=== PATIENT | male | born 1990 | race Caucasian/White ===

== ENCOUNTER 2021-07-09 14:24 | Emergency (ER) | payer SELFPAY ==
[~2021-07-09] VITALS: Ht 172.7 cm; Wt 63.6 kg
[2021-07-09 14:33] VITALS: BP 98/51
[2021-07-09 17:07] LABS: HEMATOCRIT 42.1 % (41-53); HEMOGLOBIN 14.2 g/dL (13.5-17.5); MEAN CORPUSCULAR HEMOGLOBIN 31.2 pg (26.0-34.0); MEAN CORPUSCULAR HGB CONC 33.7 G/dL (31.0-37.0); MEAN CORPUSCULAR VOLUME 93 fL (80-100); PLATELET COUNT (AUTO) 217 K/uL (150-450); RED BLOOD CELL COUNT(AUTO) 4.55 MIL/uL (4.50-5.90); RED CELL DISTRIBUTION WIDTH 14.6 % (11.5-14.5)
[2021-07-09 17:18] LABS: ANION GAP 4 mmol/L (8-16); CALCIUM, TOTAL 8.6 mg/dL (8.8-10.5); CARBON DIOXIDE 32 mmol/L (22-29); CHLORIDE 103 mmol/L (98-107); CREATININE 0.97 mg/dL (0.60-1.30); GLOMERULAR FILTR. RATE CALC > 60 mL/min (>60); GLUCOSE,RANDOM 101 mg/dL (70-110); POTASSIUM 4.1 mmol/L (3.5-5.1); SODIUM SERUM 139 mmol/L (136-145); UREA NITROGEN, BLOOD 14 mg/dL (7-18)
[2021-07-09 17:34] LABS: BAND NEUTROPHILS % (MANUAL) 4 % (0-5); LYMPHOCYTES % (MANUAL) 35 % (22-44); MONOCYTES % (MANUAL) 5 % (2-9); SEGMENTED NEUTROPHILS % 56 % (40-70)
[2021-07-09] MEDS ORDERED: DOCU-385 PO (18:13)
[2021-07-09] MEDS ORDERED: HYDR25SU38 PR (18:17)
== END 2021-07-09 18:36 | disposition home or self-care (01) ==
LOC: EMS 14:28
DX: K64.9 Unspecified hemorrhoids (principal); F17.210 Nicotine dependence, cigarettes, uncomplicated; F12.90 Cannabis use, unspecified, uncomplicated; F19.90 Other psychoactive substance use, unspecified, uncomplicated
CPT/HCPCS: 80048; 85007; 85027; 99283

== ENCOUNTER 2022-05-31 13:24 | Emergency (ER) | payer MEDICAID ==
[~2022-05-31] VITALS: Ht 170.2 cm; Wt 63.0 kg
[~2022-05-31 13:24] MED LIST: DOCU-385 PO; HYDR25SU38 PR
[2022-05-31 14:57] VITALS: BP 106/89
[2022-05-31] MEDS ORDERED: FLUCONAZOLE 200 MG TABLET PO ONE (15:45)
[2022-05-31 15:46] LABS: BASOPHILS % (AUTO) 0.4 % (0.0-2.0); EOSINOPHILS % (AUTO) 4.7 % (1.0-6.0); HEMATOCRIT 36.6 % (41-53); HEMOGLOBIN 12.4 g/dL (13.5-17.5); LYMPHOCYTES # (AUTO) 0.8 K/uL (1.0-4.8); LYMPHOCYTES % (AUTO) 19.6 % (22.0-44.0); MEAN CORPUSCULAR HEMOGLOBIN 29.6 pg (26.0-34.0); MEAN CORPUSCULAR HGB CONC 33.9 G/dL (31.0-37.0); MEAN CORPUSCULAR VOLUME 87 fL (80-100); MONOCYTES # (AUTO) 0.4 K/uL (0.1-1.0); MONOCYTES % (AUTO) 10.8 % (2.0-9.0); NEUTROPHILS # (AUTO) 2.7 K/uL (1.8-7.7); NEUTROPHILS % (AUTO) 64.5 % (40.0-70.0); PLATELET COUNT (AUTO) 244 K/uL (150-450); RED CELL DISTRIBUTION WIDTH 13.5 % (11.5-14.5)
[2022-05-31 15:54] LABS: ANION GAP 4 mmol/L (8-16); CALCIUM, TOTAL 8.7 mg/dL (8.8-10.5); CARBON DIOXIDE 31 mmol/L (22-29); CHLORIDE 100 mmol/L (98-107); GLOMERULAR FILTR. RATE CALC > 60 mL/min (>60); GLUCOSE,RANDOM 90 mg/dL (70-110); SODIUM SERUM 135 mmol/L (136-145); UREA NITROGEN, BLOOD 7 mg/dL (7-18)
[2022-05-31 16:00] LABS: ALANINE AMINOTRANSFERASE 23 U/L (12-78); ALKALINE PHOSPHATASE 68 U/L (46-116); ASPARTATE AMINOTRANSFERASE 27 U/L (15-37); BILIRUBIN,TOTAL 0.2 mg/dL (0.1-1.0); TOTAL PROTEIN, SERUM 7.4 g/dL (6.4-8.2)
[2022-05-31] MEDS ORDERED: FLUC100T68 PO (17:18)
[2022-05-31] MEDS ORDERED: NYST100033 PO (17:19)
[2022-06-03 12:06] LABS: HIV 1-2 SCREEN 4TH GEN W/RFLX Preliminary Reactive (Non Reactive); HIV INTERPRETATION HIV-1 Positive; HIV-1 ANTIBODY(MULTISPOT) Reactive (Non Reactive); HIV-2 ANTIBODY(MULTISPOT) Non Reactive (Non Reactive)
== END 2022-05-31 17:34 | disposition home or self-care (01) ==
LOC: EMS 13:43
DX: K64.9 Unspecified hemorrhoids (principal); B37.9 Candidiasis, unspecified; F17.210 Nicotine dependence, cigarettes, uncomplicated; F15.90 Other stimulant use, unspecified, uncomplicated
CPT/HCPCS: 80053; 85025; 87389; 99283

== ENCOUNTER 2022-06-25 10:47 | Emergency (ER) | payer MEDICAID ==
[~2022-06-25] VITALS: Ht 170.2 cm; Wt 65.9 kg
[~2022-06-25 10:47] MED LIST changes: -DOCU-385 PO; +FLUC100T68 PO; -HYDR25SU38 PR; +NYST100033 PO
[2022-06-25 14:02] VITALS: BP 122/68
== END 2022-06-25 14:03 | disposition home or self-care (01) ==
LOC: EMS 10:50
DX: M20.011 Mallet finger of right finger(s) (principal); F19.90 Other psychoactive substance use, unspecified, uncomplicated; F17.210 Nicotine dependence, cigarettes, uncomplicated
CPT/HCPCS: 99283

== ENCOUNTER 2023-03-18 15:01 | Emergency (ER) | payer MEDICAID ==
[~2023-03-18] VITALS: Ht 172.7 cm; Wt 77.3 kg
[2023-03-18 15:08] VITALS: TEMP 98.2
[2023-03-18] MEDS ORDERED: CEPH-558 PO (16:28)
[2023-03-18] MEDS ORDERED: CEPHALEXIN MONOHYDRATE 500 MG CAPSULE PO ONE (16:30)
[2023-03-18] MEDS ORDERED: IBUPROFEN 600 MG TABLET PO ONE (16:30)
[2023-03-18 16:46] VITALS: BP 131/84; PULSE 88; RESP 16
== END 2023-03-18 17:04 | disposition home or self-care (01) ==
LOC: EMS 15:20
DX: S80.861A Insect bite (nonvenomous), right lower leg, initial encounter (principal); F17.210 Nicotine dependence, cigarettes, uncomplicated; F15.90 Other stimulant use, unspecified, uncomplicated; W57.XXXA Bitten or stung by nonvenomous insect and other nonvenomous arthropods, initial encounter; Y93.89 Activity, other specified; Y92.89 Other specified places as the place of occurrence of the external cause; Y99.8 Other external cause status
CPT/HCPCS: 99283

== ENCOUNTER 2023-03-22 19:52 | Emergency (ER) | payer MEDICAID ==
[~2023-03-22] VITALS: Ht 172.7 cm; Wt 75.0 kg
[~2023-03-22 19:52] MED LIST changes: +CEPH-558 PO; -FLUC100T68 PO; -NYST100033 PO
[2023-03-22 20:01] VITALS: TEMP 98.2
[2023-03-22] MEDS ORDERED: LIDOCAINE 1% 10 ML VIAL SQ ONE (21:15)
[2023-03-22] MEDS ORDERED: BACTDSB PO (21:27)
[2023-03-22 21:30] VITALS: BP 127/73; PULSE 90; RESP 16
== END 2023-03-22 22:16 | disposition home or self-care (01) ==
LOC: EMS 19:53
DX: L02.415 Cutaneous abscess of right lower limb (principal); F17.210 Nicotine dependence, cigarettes, uncomplicated; F15.90 Other stimulant use, unspecified, uncomplicated
CPT/HCPCS: 99283; 10060; J3490

== ENCOUNTER 2023-05-26 13:48 | Emergency (ER) | payer MEDICAID ==
[~2023-05-26] VITALS: Ht 172.7 cm; Wt 72.7 kg
[~2023-05-26 13:48] MED LIST changes: +BACTDSB PO
[2023-05-26 14:03] VITALS: TEMP 98.5
[2023-05-26] MEDS ORDERED: DOXY-354 PO (16:43)
[2023-05-26] MEDS ORDERED: CEPH-558 PO (16:43)
[2023-05-26] MEDS ORDERED: IBUP-1554 PO (16:43)
[2023-05-26 17:12] VITALS: BP 126/78; PULSE 81; RESP 16
== END 2023-05-26 17:17 | disposition home or self-care (01) ==
LOC: EMS 13:48
DX: L03.012 Cellulitis of left finger (principal); F17.210 Nicotine dependence, cigarettes, uncomplicated; F15.90 Other stimulant use, unspecified, uncomplicated
CPT/HCPCS: 26010; 99284; 73140-TC; Z7502

== ENCOUNTER 2023-07-31 18:35 | Emergency (ER) | payer MEDICAID ==
[~2023-07-31] VITALS: Ht 165.1 cm; Wt 68.2 kg
[~2023-07-31 18:35] MED LIST changes: +DOXY-354 PO; +IBUP-1554 PO; +SULF-261 PO
[2023-07-31 18:42] VITALS: TEMP 98.1
[2023-07-31 21:02] VITALS: BP 121/67; PULSE 64; RESP 16
== END 2023-07-31 21:03 | disposition home or self-care (01) ==
LOC: EMS 18:35
DX: M70.21 Olecranon bursitis, right elbow (principal); F17.210 Nicotine dependence, cigarettes, uncomplicated; F12.90 Cannabis use, unspecified, uncomplicated; F15.90 Other stimulant use, unspecified, uncomplicated
CPT/HCPCS: 99283

== ENCOUNTER 2023-09-30 10:43 | Emergency (ER) | payer MEDICAID ==
[~2023-09-30] VITALS: Ht 172.7 cm; Wt 67.0 kg
[2023-09-30 10:53] VITALS: BP 111/59; PULSE 126; RESP 18; TEMP 97.8
[2023-09-30] MEDS ORDERED: CEPH-558 PO (14:01)
[2023-09-30] MEDS ORDERED: DOXY-354 PO (14:01)
[2023-09-30] MEDS ORDERED: IBUP-1554 PO (14:01)
[2023-09-30] MEDS: DOXYCYCLINE HYCLATE 100 MG TABLET PO ONE (14:05)
[2023-09-30] MEDS: CEPHALEXIN MONOHYDRATE 500 MG CAPSULE PO ONE (14:05)
== END 2023-09-30 14:09 | disposition home or self-care (01) ==
LOC: EMS 11:52
DX: L03.317 Cellulitis of buttock (principal); F17.210 Nicotine dependence, cigarettes, uncomplicated; F12.90 Cannabis use, unspecified, uncomplicated; F15.90 Other stimulant use, unspecified, uncomplicated
CPT/HCPCS: 99283

== ENCOUNTER 2023-11-02 14:21 | Emergency (ER) | payer MEDICAID ==
[~2023-11-02] VITALS: Ht 170.2 cm; Wt 65.9 kg
[~2023-11-02 14:21] MED LIST changes: -BACTDSB PO; -SULF-261 PO
[2023-11-02 14:22] VITALS: BP 100/66; PULSE 60; RESP 18; TEMP 98; O2SAT 99
[2023-11-02] MEDS ORDERED: hiv med PO (14:28)
[2023-11-02] MEDS ORDERED: CEPH-558 PO (15:38)
[2023-11-02] MEDS ORDERED: DOXY-354 PO (15:39)
[2023-11-02] MEDS: CEPHALEXIN MONOHYDRATE 500 MG CAPSULE PO ONE (16:12)
[2023-11-02] MEDS: DOXYCYCLINE HYCLATE 100 MG TABLET PO ONE (16:12)
== END 2023-11-02 16:41 | disposition home or self-care (01) ==
LOC: EMS 14:21
DX: L03.317 Cellulitis of buttock (principal); F17.210 Nicotine dependence, cigarettes, uncomplicated; F15.90 Other stimulant use, unspecified, uncomplicated; F12.90 Cannabis use, unspecified, uncomplicated
CPT/HCPCS: 99283

== ENCOUNTER 2024-05-25 16:23 | Emergency (ER) | payer MEDICAID ==
[~2024-05-25] VITALS: Ht 172.7 cm; Wt 65.9 kg
[~2024-05-25 16:23] MED LIST changes: -IBUP-1554 PO; +hiv med PO
[2024-05-25 16:34] VITALS: TEMP 98.6
[2024-05-25] MEDS ORDERED: IBUP-1492 PO (19:40)
[2024-05-25] MEDS ORDERED: AMOX-457 PO (19:40)
[2024-05-25] MEDS: AMOX TR/POT CLAV 875 MG/125 MG TABLET PO ONE (19:47)
[2024-05-25 19:48] VITALS: BP 115/53; PULSE 76; RESP 18; O2SAT 100
[2024-05-25] MEDS: IBUPROFEN 600 MG TABLET PO ONE (19:48)
== END 2024-05-25 20:09 | disposition home or self-care (01) ==
LOC: EMS 16:23
DX: L02.31 Cutaneous abscess of buttock (principal); F12.90 Cannabis use, unspecified, uncomplicated; F17.210 Nicotine dependence, cigarettes, uncomplicated
CPT/HCPCS: 10060; 99283

== ENCOUNTER 2024-12-07 15:29 | Emergency (ER) | payer MEDICAID ==
[~2024-12-07] VITALS: Ht 170.2 cm; Wt 62.3 kg
[~2024-12-07 15:29] MED LIST changes: +AMOX-457 PO; +IBUP-1492 PO
[2024-12-07 20:47] VITALS: BP 106/70; PULSE 102; RESP 20; TEMP 98.6; O2SAT 98
[2024-12-07] MEDS ORDERED: IBUP-1492 PO (20:49)
[2024-12-07] MEDS: IBUPROFEN 600 MG TABLET PO ONE (20:54)
== END 2024-12-07 20:56 | disposition home or self-care (01) ==
LOC: EMS 15:29
DX: S20.212A Contusion of left front wall of thorax, initial encounter (principal); F12.90 Cannabis use, unspecified, uncomplicated; F15.90 Other stimulant use, unspecified, uncomplicated; F17.210 Nicotine dependence, cigarettes, uncomplicated; Z79.899 Other long term (current) drug therapy; Y04.0XXA Assault by unarmed brawl or fight, initial encounter; Y93.89 Activity, other specified; Y92.89 Other specified places as the place of occurrence of the external cause; Y99.9 Unspecified external cause status
CPT/HCPCS: 71101; 99283

== ENCOUNTER → 2025-02-06 | Emergency (ER) | payer MEDICAID ==
[~2025-02-06] VITALS: Ht 172.7 cm; Wt 64.0 kg
[~2025-02-06] MED LIST changes: +BICT1TAB PO
[2025-02-06 15:24] VITALS: BP 97/59; PULSE 86; RESP 18; TEMP 97.7; O2SAT 98
[2025-02-06] MEDS: CEPHALEXIN MONOHYDRATE 500 MG CAPSULE PO ONE (16:17)
[2025-02-06] MEDS: IBUPROFEN 600 MG TABLET PO ONE (16:17)
[2025-02-06] MEDS: ACETAMINOPHEN 500 MG TABLET PO ONE (16:17)
== END | disposition still patient (30) ==
LOC: EMS 15:11
DX: L03.011 Cellulitis of right finger (principal); F12.90 Cannabis use, unspecified, uncomplicated; F17.290 Nicotine dependence, other tobacco product, uncomplicated; F15.90 Other stimulant use, unspecified, uncomplicated; Z79.899 Other long term (current) drug therapy
CPT/HCPCS: 99284; 73130-TC; Z7502; Z7610

== ENCOUNTER 2025-02-17 22:06 | Emergency (ER) | payer MEDICAID ==
[~2025-02-17] VITALS: Ht 172.7 cm; Wt 63.0 kg
[~2025-02-17 22:06] MED LIST changes: -AMOX-457 PO; -DOXY-354 PO; -IBUP-1492 PO; -hiv med PO
[2025-02-17 22:16] VITALS: TEMP 98.2
[2025-02-18 01:29] VITALS: BP 127/78; PULSE 101; RESP 17; O2SAT 99
[2025-02-18] MEDS: DOXYCYCLINE HYCLATE 100 MG TABLET PO ONE (03:04)
[2025-02-18] MEDS ORDERED: DOXY-354 PO (03:06)
== END 2025-02-18 03:27 | disposition home or self-care (01) ==
LOC: EMS 22:10
DX: L03.011 Cellulitis of right finger (principal); F17.210 Nicotine dependence, cigarettes, uncomplicated; F12.90 Cannabis use, unspecified, uncomplicated
CPT/HCPCS: 99283